=== PATIENT | male | born 1955 | race African-American/Black ===

== ENCOUNTER 2020-12-11 02:53 | Inpatient (IN) | payer MEDICAID ==
[~2020-12-11] VITALS: Ht 172.7 cm; Wt 91.6 kg
[2020-12-11 03:29] LABS: BASOPHILS % 0.6 % (0.0-2.0); EOSINOPHILS % 1.3 % (0.0-5.0); HEMATOCRIT. 44.6 % (42.0-52.0); HEMOGLOBIN. 14.7 g/dL (14.0-18.0); LYMPHOCYTES % 27.1 % (20.0-50.0); MEAN CORPUSCULAR HEMOGLOBIN 28.4 pg (28.0-32.0); MEAN CORPUSCULAR VOLUME 86.3 fL (80.0-94.0); MEAN PLATELET VOLUME 10.4 fl (7.4-10.4); MONOCYTES % 7.5 % (2.0-8.0); NEUTROPHILS % 63.5 % (40.0-76.0); PLATELET 164 x1000/uL (130-400); RED BLOOD CELL COUNT 5.16 mill/uL (4.7-6.1); RED CELL DISTRIBUTION WIDTH 15.5 % (11.6-14.6)
[2020-12-11 03:32] LABS: CHLORIDE 112 mEq/L (98-107)
[2020-12-11 03:42] LABS: BG BASE EXCESS -2.1 mmol/L (-2.0-2.0); BG CARBOXYHEMOGLOBIN 1.4 % (0.5-1.5); BG DEOXYHEMOGLOBIN 4.7 % (0.0-5.0); BG FRACTION INSPIRED OXYGEN 40; BG HCO3 ACT 22.6 mmol/L (22.0-26.0); BG METHEMOGLOBIN 0.1 % (0.0-1.5); BG OXYGEN SATURATION 95.2 % (92.0-98.5); BG OXYHEMOGLOBIN 93.8 % (94.0-97.0); BG PCO2 38.4 mmHg (35.0-45.0); BG PH 7.387 (7.350-7.450); BG SAMPLE SITE RIGHT RADIAL; BG TOTAL HEMOGLOBIN 14.5 g/dL (12.0-18.0); BG VENT MODE MASK - SIMPLE
[2020-12-11] MEDS ORDERED: FUROSEMIDE 40MG/4ML VIAL IVP NR (04:15)
[2020-12-11] MEDS ORDERED: LISINOPRIL 10MG TABLET PO ONE (06:15)
[2020-12-11] MEDS ORDERED: ONDANSETRON HCL 4MG/2ML INJ IV PRN (16:45)
[2020-12-11] MEDS ORDERED: MAGNESIUM/ALUMINUM HYDROXIDE/SIMETHICONE 30ML UDC PO PRN (16:45)
[2020-12-11] MEDS ORDERED: ZOLPIDEM TARTRATE 5MG TABLET PO PRN (16:45)
[2020-12-11] MEDS ORDERED: GUAIFENESIN 200MG/10ML SUGAR FREE UDC PO PRN (16:45)
[2020-12-11] MEDS ORDERED: DIPHENHYDRAMINE 50MG/ML VIAL IV PRN (16:45)
[2020-12-11] MEDS ORDERED: DOCUSATE SODIUM 100MG CAPSULE PO PRN (16:45)
[2020-12-11] MEDS ORDERED: ACETAMINOPHEN 325MG TABLET PO PRN (16:45)
[2020-12-11] MEDS ORDERED: IPRATROPIUM/ALBUTEROL 0.5-3(2.5)MG/3ML NEB HHN PRN (16:45)
[2020-12-11] MEDS: CLONIDINE 0.1MG TABLET PO PRN (18:08)
[2020-12-11] MEDS: ENOXAPARIN 40MG/0.4ML SYR SUBCUT SCH (18:57)
[2020-12-11] MEDS: METHYLPREDNISOLONE SOD SUCC 125 MG/2 ML VIAL IV SCH (20:06)
[2020-12-11] MEDS ORDERED: AMLODIPINE 5MG TABLET PO SCH (21:00)
[2020-12-11] MEDS: SODIUM CHLORIDE 0.9% INJ 3ML FLUSH IVF SCH (21:48)
[2020-12-11] MEDS: LISINOPRIL 10MG TABLET PO SCH (21:48)
[2020-12-11] MEDS: FAMOTIDINE 20MG TABLET PO SCH (21:48)
[2020-12-12] VITALS (8 sets, daily range): BP systolic 136–173; BP diastolic 80–97
[2020-12-12] MEDS: CLONIDINE 0.1MG TABLET PO PRN ×2 (00:50→13:37)
[2020-12-12] MEDS: METHYLPREDNISOLONE SOD SUCC 125 MG/2 ML VIAL IV SCH ×3 (01:23→17:03)
[2020-12-12] MEDS: SODIUM CHLORIDE 0.9% INJ 3ML FLUSH IVF SCH ×3 (05:02→22:22)
[2020-12-12] MEDS: IPRATROPIUM/ALBUTEROL 0.5-3(2.5)MG/3ML NEB HHN SCH ×3 (05:14→15:02)
[2020-12-12] MEDS: LISINOPRIL 10MG TABLET PO SCH (09:18)
[2020-12-12] MEDS: FAMOTIDINE 20MG TABLET PO SCH ×2 (09:18→20:07)
[2020-12-12] MEDS: AMLODIPINE 5MG TABLET PO SCH ×2 (11:57→20:07)
[2020-12-12] MEDS: ACETAMINOPHEN 325MG TABLET PO PRN (17:03)
[2020-12-12] MEDS: ENOXAPARIN 40MG/0.4ML SYR SUBCUT SCH (17:03)
[2020-12-12] MEDS: HYDRALAZINE 20MG/ML VIAL IV PRN (17:03)
[2020-12-12] MEDS ORDERED: HYDRALAZINE 20MG/ML VIAL IV NR (17:45)
[2020-12-12] MEDS ORDERED: NALOXONE HCL 0.4MG/ML VIAL IV PRN (18:15)
[2020-12-12] MEDS: LISINOPRIL 20MG TABLET PO SCH (20:07)
[2020-12-12] MEDS: HYDRALAZINE HCL 50MG TABLET PO SCH (22:22)
[2020-12-13] VITALS: BP 117/69
[2020-12-13] MEDS: IPRATROPIUM/ALBUTEROL 0.5-3(2.5)MG/3ML NEB HHN SCH ×3 (00:24→20:57)
[2020-12-13] MEDS: METHYLPREDNISOLONE SOD SUCC 125 MG/2 ML VIAL IV SCH ×3 (02:13→17:14)
[2020-12-13 04:00] VITALS: BP 159/85
[2020-12-13] MEDS: SODIUM CHLORIDE 0.9% INJ 3ML FLUSH IVF SCH ×3 (05:36→21:34)
[2020-12-13] MEDS: HYDRALAZINE HCL 50MG TABLET PO SCH ×3 (05:37→22:48)
[2020-12-13] MEDS: AMLODIPINE 5MG TABLET PO SCH (09:00)
[2020-12-13] MEDS: FAMOTIDINE 20MG TABLET PO SCH ×2 (09:01→21:34)
[2020-12-13] MEDS: LISINOPRIL 20MG TABLET PO SCH ×2 (09:01→21:34)
[2020-12-13] MEDS: ACETAMINOPHEN 325MG TABLET PO PRN (09:01)
[2020-12-13] MEDS ORDERED: IOHEXOL-350 100 ML BOTTLE ONE (09:49)
[2020-12-13] MEDS: MORPHINE SULFATE 4 MG/ML CPJ (NOT FOR IM USE) IV PRN ×2 (09:51→15:12)
[2020-12-13] MEDS: HYDRALAZINE 20MG/ML VIAL IV PRN ×2 (09:54→15:11)
[2020-12-13] MEDS: CLONIDINE 0.1MG TABLET PO PRN (10:12)
[2020-12-13] MEDS ORDERED: LABETALOL 5MG/ML SYR 20 MG/4 ML SYRINGE IV NR (10:30)
[2020-12-13 12:00] VITALS: BP 121/65
[2020-12-13 16:30] VITALS: BP 144/63
[2020-12-13] MEDS: ENOXAPARIN 40MG/0.4ML SYR SUBCUT SCH (17:14)
[2020-12-13 18:14] LABS: *AMPHETAMINES SCREEN URINE NEGATIVE (NEGATIVE); *BARBITURATES SCREEN URINE NEGATIVE (NEGATIVE); *BENZODIAZEPINES SCREEN URINE NEGATIVE (NEGATIVE); *COCAINE SCREEN URINE NEGATIVE (NEGATIVE)
[2020-12-13 18:15] LABS: CANNABINOID URINE SCREEN NEGATIVE (NEGATIVE); METHADONE URINE SCREEN NEGATIVE (NEGATIVE); OPIATES URINE SCREEN PRESUMTIVE POSITIVE (NEGATIVE); PHENCYCLIDINE URINE SCREEN NEGATIVE (NEGATIVE)
[2020-12-13] MEDS: ISOSORBIDE MONONITRATE 30MG TABLET SR 24HR PO SCH (18:43)
[2020-12-13 19:14] VITALS: BP 151/76
[2020-12-13 20:00] VITALS: BP 131/65
[2020-12-13] MEDS: AMLODIPINE 10MG TABLET PO SCH (21:34)
[2020-12-14] VITALS (9 sets, daily range): BP systolic 107–141; BP diastolic 53–76
[2020-12-14] MEDS: METHYLPREDNISOLONE SOD SUCC 125 MG/2 ML VIAL IV SCH ×3 (01:16→18:38)
[2020-12-14] MEDS: IPRATROPIUM/ALBUTEROL 0.5-3(2.5)MG/3ML NEB HHN SCH ×4 (01:22→20:58)
[2020-12-14] MEDS: SODIUM CHLORIDE 0.9% INJ 3ML FLUSH IVF SCH ×2 (05:34→21:25)
[2020-12-14] MEDS: HYDRALAZINE HCL 50MG TABLET PO SCH (05:34)
[2020-12-14] MEDS ORDERED: HEPARIN SODIUM 1,000 UNIT/1ML VIAL IV ONE (07:54)
[2020-12-14] MEDS: ISOSORBIDE MONONITRATE 30MG TABLET SR 24HR PO SCH (09:28)
[2020-12-14] MEDS: AMLODIPINE 10MG TABLET PO SCH ×2 (09:29→21:24)
[2020-12-14] MEDS: FAMOTIDINE 20MG TABLET PO SCH ×2 (09:29→21:23)
[2020-12-14] MEDS: LISINOPRIL 20MG TABLET PO SCH ×2 (09:30→21:23)
[2020-12-14] MEDS ORDERED: VERAPAMIL HCL 2.5 MG/1 ML 2ML VIAL IV ONE (12:31)
[2020-12-14] MEDS ORDERED: LIDOCAINE HCL 1% 20ML VIAL (Pyxis) INJ ONE (12:31)
[2020-12-14] MEDS ORDERED: IODIXANOL 320MG/ML 200ML BOTTLE ONE (12:33)
[2020-12-14] MEDS ORDERED: FENTANYL CITRATE/PF 50MCG/ML 2ML VIAL ONE ×2 (12:41→13:55)
[2020-12-14] MEDS ORDERED: MIDAZOLAM HCL 2 MG/2 ML VIAL ONE (12:42)
[2020-12-14] MEDS ORDERED: MIDAZOLAM HCL 5 MG/5 ML VIAL ONE (13:55)
[2020-12-14] MEDS ORDERED: ATROPINE SULFATE 1MG/10ML SYR IV PRN (14:45)
[2020-12-14] MEDS: ENOXAPARIN 40MG/0.4ML SYR SUBCUT SCH (18:00)
[2020-12-15] VITALS (7 sets, daily range): BP systolic 134–167; BP diastolic 61–97
[2020-12-15] MEDS: METHYLPREDNISOLONE SOD SUCC 125 MG/2 ML VIAL IV SCH ×2 (01:33→09:38)
[2020-12-15] MEDS: SODIUM CHLORIDE 0.9% INJ 3ML FLUSH IVF SCH (05:00)
[2020-12-15 06:53] LABS: HEMATOCRIT. 42.9 % (42.0-52.0); HEMOGLOBIN. 14.1 g/dL (14.0-18.0); MEAN CORPUSCULAR VOLUME 84.9 fL (80.0-94.0); MEAN PLATELET VOLUME 10.5 fl (7.4-10.4); PLATELET 187 x1000/uL (130-400); RED BLOOD CELL COUNT 5.05 mill/uL (4.7-6.1)
[2020-12-15 06:59] LABS: CHLORIDE 107 mEq/L (98-107)
[2020-12-15] MEDS ORDERED: FUROSEMIDE 20MG TABLET PO SCH (09:00)
[2020-12-15] MEDS ORDERED: SPIRONOLACTONE 25MG TABLET PO SCH (09:00)
[2020-12-15] MEDS: AMLODIPINE 10MG TABLET PO SCH (09:30)
[2020-12-15] MEDS: ISOSORBIDE MONONITRATE 30MG TABLET SR 24HR PO SCH (09:31)
[2020-12-15] MEDS: LISINOPRIL 20MG TABLET PO SCH (09:31)
[2020-12-15] MEDS: FAMOTIDINE 20MG TABLET PO SCH (09:38)
[2020-12-15] MEDS: IPRATROPIUM/ALBUTEROL 0.5-3(2.5)MG/3ML NEB HHN SCH ×2 (10:20→15:13)
[2020-12-15 16:32] LABS: PLATELET ESTIMATE NORMAL
[2020-12-15] MEDS ORDERED: ENOXAPARIN 30MG/0.3ML SYR SUBCUT SCH (21:00)
== END 2020-12-15 16:42 | disposition home or self-care (01) | DRG 191 ==
LOC: EDBD 03:48 → ER 03:48 → MICUSO 06:47 → 7EST 20:23 → 3WST 12-14 16:44
PROVIDERS: ADMIT Internal Medicine; ATTEND Internal Medicine
PROC: 4A023N7 Measurement of Cardiac Sampling and Pressure, Left Heart, Percutaneous Approach (ICD-10-PCS; principal; 2020-12-14)
PROC: B211YZZ Fluoroscopy of Multiple Coronary Arteries using Other Contrast (ICD-10-PCS; 2020-12-14)
DX: I25.110 Atherosclerotic heart disease of native coronary artery with unstable angina pectoris (principal); J96.01 Acute respiratory failure with hypoxia; R65.11 Systemic inflammatory response syndrome (SIRS) of non-infectious origin with acute organ dysfunction; I50.33 Acute on chronic diastolic (congestive) heart failure; J44.1 Chronic obstructive pulmonary disease with (acute) exacerbation; I11.0 Hypertensive heart disease with heart failure; Z96.651 Presence of right artificial knee joint; R74.01 Elevation of levels of liver transaminase levels; F17.210 Nicotine dependence, cigarettes, uncomplicated; Z20.822 Contact with and (suspected) exposure to COVID-19; I16.1 Hypertensive emergency; I35.0 Nonrheumatic aortic (valve) stenosis; Z86.73 Personal history of transient ischemic attack (TIA), and cerebral infarction without residual deficits; Z71.6 Tobacco abuse counseling
CPT/HCPCS: 36415; 36600; 71045; 71275; 80048; 80053; 80305; 82375; 82805; 82962; 83880; 84484; 85025; 87426; 93005; 93306; 93458; 99285; C1769; C1887; C1893; J0360; J1644; J1650; J1940; J2250; J2270; J2930; J3010; J3490; Q9967

== ENCOUNTER → 2021-01-06 | Outpatient (CLI) | payer MEDICAID ==
[~2021-01-06] MED LIST: ACETAMINOPHEN 500MG TABLET ONE; ASPI-1497 MT; ATOR40TA70 MT; BACITRACIN 15GM TUBE TOP ONE; DOPAMINE 400MG/250ML PREMIX 250 ML IV ONE; FURO20TA4 MT; ISOS30TA91 MT; LISI20TA31 MT; POLYMYXIN B SULFATE 500000 UNITS/VIAL ONE; SKIN ADHESIVE 0.7 GM EA TOP ONE; SPIR25TA6 PO; THROMBIN (BOVINE) 5000 UNITS/VIAL TOP ONE
== END | disposition home or self-care (01) ==
LOC: LAB 10:30
PROVIDERS: ATTEND Thoracic Surgery (Cardiothoracic Vascular Surgery)
DX: Z01.812 Encounter for preprocedural laboratory examination (principal); Z20.822 Contact with and (suspected) exposure to COVID-19
CPT/HCPCS: 87426

== ENCOUNTER 2021-01-10 05:26 | Inpatient (IN) | payer MEDICAID ==
[~2021-01-10] VITALS: Ht 182.9 cm; Wt 94.0 kg
[2021-01-10] VITALS (56 sets, daily range): BP systolic 109–241; BP diastolic 51–95
[2021-01-10 05:54] LABS: CHLORIDE 110 mEq/L (98-107)
[2021-01-10] MEDS ORDERED: DOPAMINE 400 MG PREMIX 250 ML IV PRN (06:00)
[2021-01-10] MEDS ORDERED: PAPAVERINE HCL 180MG in SODIUM CHLORIDE 0.9% 24ML IV PRN (06:00)
[2021-01-10] MEDS ORDERED: NOREPINEPHRINE 8 MG in DEXT 5% WATER 242 ML IV PRN (06:00)
[2021-01-10] MEDS ORDERED: NICARDIPINE 40MG/200ML PREMIX 200 ML IV PRN (06:00)
[2021-01-10] MEDS ORDERED: INSULIN REGULAR (DRIP) 100 UNITS in SODIUM CHLORIDE 0.9% 99 ML IV PRN (06:00)
[2021-01-10] MEDS ORDERED: DEL NIDO ELECTROLYTE-S(PH 7.4) 1,000 ML IV PRN ×2 (06:00)
[2021-01-10] MEDS ORDERED: CEFAZOLIN 2,000 MG in DEXT 5% WATER 100 ML IV PRN (06:00)
[2021-01-10] MEDS ORDERED: EPINEPHRINE 5 MG in DEXT 5% WATER 245 ML IV PRN (06:00)
[2021-01-10] MEDS ORDERED: DOBUTAMINE 250MG PREMIX 250 ML IV PRN (06:00)
[2021-01-10] MEDS ORDERED: LACTATED RINGERS 1,000 ML IV SCH (06:15)
[2021-01-10] MEDS ORDERED: HEPARIN 1000 UNITS/ML 10ML ONE ×2 (06:42→08:27)
[2021-01-10] MEDS ORDERED: AMINOCAPROIC ACID 5,000 MG in SODIUM CHLORIDE 0.9% 230 ML IV ONE (06:45)
[2021-01-10] MEDS ORDERED: FENTANYL CITRATE/PF 50MCG/ML 5ML VIAL ONE (07:10)
[2021-01-10] MEDS ORDERED: ROCURONIUM BROMIDE 10MG/ML VIAL 5ML IV ONE (07:12)
[2021-01-10] MEDS ORDERED: PROPOFOL 200MG/20ML VIAL IV ONE ×2 (07:13→08:07)
[2021-01-10] MEDS ORDERED: PHENYLEPHRINE HCL 10 MG/ML 1ML (IV VIAL) IV ONE ×2 (07:16→12:58)
[2021-01-10] MEDS ORDERED: LIDOCAINE HCL/PF 1% 10 MG/ML 5ML VIAL ONE (07:18)
[2021-01-10] MEDS ORDERED: ESMOLOL HCL 10MG/ML 10ML VIAL IV ONE (07:36)
[2021-01-10] MEDS ORDERED: LABETALOL HCL 5MG/ML VIAL 20ML IV ONE (07:39)
[2021-01-10 08:28] LABS: CLARITY URINE CLEAR (CLEAR); COLOR URINE YELLOW (YELLOW); KETONES URINE NEGATIVE (NEGATIVE); LEUKOCYTE ESTERASE URINE TRACE (NEGATIVE); NITRITE URINE NEGATIVE (NEGATIVE); OCCULT BLOOD URINE NEGATIVE (NEGATIVE); PROTEIN URINE TRACE (NEGATIVE); SPECIFIC GRAVITY URINE 1.023 (1.005-1.030)
[2021-01-10] MEDS ORDERED: AMINOCAPROIC ACID 250 MG/ML 20ML VIAL ONE ×3 (08:30→12:58)
[2021-01-10] MEDS ORDERED: FUROSEMIDE 100MG/10ML VIAL ONE (08:34)
[2021-01-10] MEDS ORDERED: VECURONIUM BROMIDE 10 MG/VIAL IV ONE (08:48)
[2021-01-10] MEDS ORDERED: INSULIN REGULAR (DRIP) 100 UNITS in SODIUM CHLORIDE 0.9% 100 ML IV SCH (09:00)
[2021-01-10] MEDS ORDERED: SPIR25TA6 PO (09:00)
[2021-01-10] MEDS ORDERED: FURO20TA4 MT (09:00)
[2021-01-10] MEDS ORDERED: ISOS30TA91 MT (09:00)
[2021-01-10] MEDS ORDERED: LISI20TA31 MT (09:00)
[2021-01-10] MEDS ORDERED: KCL 10MEQ/50ML PREMIX 200 ML IV PRN (09:00)
[2021-01-10] MEDS ORDERED: DEXTROSE 50% WATER 50ML SYRINGE IV PRN ×2 (09:00)
[2021-01-10] MEDS ORDERED: ASPI-1497 MT (09:00)
[2021-01-10] MEDS: BLOOD SUGAR DIAGNOSTIC STRIP TEST SCH ×13 (09:00→23:00)
[2021-01-10] MEDS ORDERED: KCL 10MEQ/50ML PREMIX 150 ML IV PRN (09:00)
[2021-01-10] MEDS ORDERED: ATOR40TA70 MT (09:00)
[2021-01-10] MEDS ORDERED: MIDAZOLAM HCL 2 MG/2 ML VIAL ONE (09:24)
[2021-01-10] MEDS ORDERED: ONDANSETRON HCL 4MG/2ML INJ ONE (09:50)
[2021-01-10] MEDS ORDERED: KETOROLAC 30MG/ML VIAL ONE (09:50)
[2021-01-10] MEDS ORDERED: METOCLOPRAMIDE HCL 10MG/2ML VIAL ONE (09:50)
[2021-01-10] MEDS ORDERED: HYDRALAZINE 20MG/ML VIAL ONE (09:56)
[2021-01-10] MEDS ORDERED: DEXMEDETOMIDINE 400 MCG/100 ML 100 ML IV ONE (09:59)
[2021-01-10] MEDS ORDERED: CEFAZOLIN SODIUM 1000MG/VIAL ONE (10:08)
[2021-01-10] MEDS ORDERED: ETOMIDATE 2MG/ML 10ML VIAL IV ONE (10:08)
[2021-01-10] MEDS ORDERED: PROTAMINE SULFATE 10MG/ML VIAL 25ML IV ONE (11:16)
[2021-01-10] MEDS ORDERED: GLYCOPYRROLATE 0.2 MG/ML 2ML VIAL ONE (11:37)
[2021-01-10] MEDS ORDERED: NEOSTIGMINE METHYLSULFATE 1MG/ML 10 ML VIAL ONE (11:37)
[2021-01-10] MEDS ORDERED: CALCIUM CHLORIDE 3,000 MG in DEXT 5% WATER 250 ML IV PRN (12:15)
[2021-01-10] MEDS ORDERED: ALBUMIN HUMAN 12.5G/250ML (5%) IV PRN (12:15)
[2021-01-10] MEDS ORDERED: DOPAMINE 400MG/250ML PREMIX 250 ML IV SCH (12:15)
[2021-01-10] MEDS ORDERED: ONDANSETRON HCL 4MG/2ML INJ IV PRN (12:15)
[2021-01-10] MEDS ORDERED: EPINEPHRINE 5 MG in DEXT 5% WATER 245 ML IV SCH (12:15)
[2021-01-10] MEDS ORDERED: MAGNESIUM 1 G PREMIX 100 ML IV PRN (12:15)
[2021-01-10] MEDS ORDERED: MAGNESIUM 2 G PREMIX 50 ML IV PRN (12:15)
[2021-01-10] MEDS ORDERED: ALBUMIN HUMAN 25GM/100ML (25%) IV PRN (12:15)
[2021-01-10] MEDS ORDERED: ACETAMINOPHEN 325MG TABLET PO PRN (12:15)
[2021-01-10] MEDS ORDERED: MORPHINE SULFATE 2 MG/ML CPJ (NOT FOR IM USE) IV PRN (12:15)
[2021-01-10] MEDS ORDERED: MAGNESIUM SULFATE 3 GM in DEXT 5% WATER 100 ML IV PRN (12:15)
[2021-01-10 12:53] LABS: BG BASE EXCESS -3.5 mmol/L (-2.0-2.0); BG CARBOXYHEMOGLOBIN 0.8 % (0.5-1.5); BG DEOXYHEMOGLOBIN 10.1 % (0.0-5.0); BG HCO3 ACT 22.7 mmol/L (22.0-26.0); BG METHEMOGLOBIN 0.1 % (0.0-1.5); BG OXYGEN SATURATION 89.8 % (92.0-98.5); BG PCO2 45.3 mmHg (35.0-45.0); BG PH 7.317 (7.350-7.450); BG PO2 65.1 mmHg (75.0-100.0); BG SAMPLE SITE ALINE; BG TOTAL HEMOGLOBIN 12.8 g/dL (12.0-18.0); BG VENT MODE MASK - VENTI
[2021-01-10] MEDS ORDERED: MAGNESIUM SULFATE 5GM/10ML VIAL IV ONE (12:58)
[2021-01-10] MEDS ORDERED: MANNITOL 20% (20GM/100ML) BAG 500ML PREMIX IV ONE (12:58)
[2021-01-10] MEDS ORDERED: CALCIUM CHLORIDE 1GM/10ML SYR IV ONE (12:58)
[2021-01-10] MEDS ORDERED: LIDOCAINE HCL 2% 5ML SYRINGE IV ONE (12:58)
[2021-01-10] MEDS ORDERED: HEPARIN 10,000 UNITS/ML VIAL ONE (12:58)
[2021-01-10] MEDS ORDERED: SODIUM BICARBONATE 8.4% 1 MEQ/ML 50ML SYR IV ONE (12:58)
[2021-01-10] MEDS ORDERED: ALBUMIN HUMAN 25GM/100ML (25%) IV ONE (12:58)
[2021-01-10] MEDS: MAGNESIUM HYDROXIDE 400MG/5ML 30ML UDC PO SCH ×3 (13:00→20:40)
[2021-01-10 13:03] LABS: HEMATOCRIT. 36.4 % (42.0-52.0); HEMOGLOBIN. 11.8 g/dL (14.0-18.0); MEAN CORPUSCULAR HEMOGLOBIN 27.6 pg (28.0-32.0); MEAN CORPUSCULAR VOLUME 85.1 fL (80.0-94.0); MEAN PLATELET VOLUME 9.9 fl (7.4-10.4); PLATELET 139 x1000/uL (130-400); RED BLOOD CELL COUNT 4.28 mill/uL (4.7-6.1); RED CELL DISTRIBUTION WIDTH 15.9 % (11.6-14.6)
[2021-01-10 13:14] LABS: INR 1.1; PROTHROMBIN TIME 11.8 sec (9.6-11.0)
[2021-01-10] MEDS ORDERED: NALOXONE HCL 0.4MG/ML VIAL IV PRN (13:15)
[2021-01-10 13:23] LABS: CHLORIDE 106 mEq/L (98-107)
[2021-01-10 13:30] LABS: PHOSPHORUS 3.5 mg/dL (2.5-4.9)
[2021-01-10] MEDS: KCL 10MEQ/50ML PREMIX 100 ML IV PRN (13:33)
[2021-01-10] MEDS ORDERED: POTASSIUM CHLORIDE 10MEQ IN WATER 50ML PREMIX IV ONE (13:37)
[2021-01-10] MEDS ORDERED: MAGNESIUM SULFATE 1G IN DEXT 5% 100ML PREMIX IV ONE (13:37)
[2021-01-10] MEDS: CEFAZOLIN 1000MG PREMIX 50 ML IV SCH ×2 (14:55→21:58)
[2021-01-10] MEDS: DEXT 5%/0.45% NACL 1000ML 1,000 ML IV SCH (15:15)
[2021-01-10] MEDS: KETOROLAC 15MG/ML VIAL IV PRN (16:57)
[2021-01-10] MEDS: BACITRACIN 15GM TUBE TOP SCH (17:00)
[2021-01-10] MEDS: DOCUSATE SODIUM 100MG CAPSULE PO SCH (17:44)
[2021-01-10 18:23] LABS: HEMATOCRIT. 37.3 % (42.0-52.0); HEMOGLOBIN. 12.2 g/dL (14.0-18.0); MEAN CORPUSCULAR HEMOGLOBIN 27.8 pg (28.0-32.0); MEAN CORPUSCULAR VOLUME 85.1 fL (80.0-94.0); MEAN PLATELET VOLUME 9.7 fl (7.4-10.4); PLATELET 140 x1000/uL (130-400); RED BLOOD CELL COUNT 4.38 mill/uL (4.7-6.1); RED CELL DISTRIBUTION WIDTH 16.2 % (11.6-14.6)
[2021-01-10 18:30] LABS: CHLORIDE 112 mEq/L (98-107)
[2021-01-10 18:35] LABS: PHOSPHORUS 1.9 mg/dL (2.5-4.9)
[2021-01-10 18:36] LABS: PROTHROMBIN TIME 11.1 sec (9.6-11.0)
[2021-01-10 18:38] LABS: BG BASE EXCESS -1.1 mmol/L (-2.0-2.0); BG CARBOXYHEMOGLOBIN 1.1 % (0.5-1.5); BG FRACTION INSPIRED OXYGEN 36; BG HCO3 ACT 24.3 mmol/L (22.0-26.0); BG METHEMOGLOBIN 0.2 % (0.0-1.5); BG OXYGEN SATURATION 94.9 % (92.0-98.5); BG OXYHEMOGLOBIN 93.7 % (94.0-97.0); BG PCO2 43.1 mmHg (35.0-45.0); BG PH 7.369 (7.350-7.450); BG PO2 79.9 mmHg (75.0-100.0); BG SAMPLE SITE ALINE; BG VENT MODE NASAL CANNULA
[2021-01-10] MEDS: OXYCODONE HCL/ACETAMINOPHEN 5/325MG TABLET PO PRN (20:42)
[2021-01-10] MEDS: IPRATROPIUM/ALBUTEROL 0.5-3(2.5)MG/3ML NEB HHN SCH ×2 (21:00→21:58)
[2021-01-10 21:05] LABS: PLATELET ESTIMATE NORMAL
[2021-01-10 21:59] LABS: PLATELET ESTIMATE NORMAL
[2021-01-11] VITALS (95 sets, daily range): BP systolic 84–187; BP diastolic 36–97
[2021-01-11] MEDS: IPRATROPIUM/ALBUTEROL 0.5-3(2.5)MG/3ML NEB HHN SCH ×6 (00:26→21:32)
[2021-01-11] MEDS: MAGNESIUM HYDROXIDE 400MG/5ML 30ML UDC PO SCH ×4 (00:54→12:42)
[2021-01-11] MEDS: BLOOD SUGAR DIAGNOSTIC STRIP TEST SCH ×20 (01:00→21:04)
[2021-01-11 01:02] LABS: BG CARBOXYHEMOGLOBIN 0.5 % (0.5-1.5); BG DEOXYHEMOGLOBIN 3.5 % (0.0-5.0); BG FRACTION INSPIRED OXYGEN 100; BG HCO3 ACT 23.6 mmol/L (22.0-26.0); BG OXYGEN SATURATION 96.5 % (92.0-98.5); BG PCO2 39.3 mmHg (35.0-45.0); BG PH 7.397 (7.350-7.450); BG PO2 89.5 mmHg (75.0-100.0); BG SAMPLE SITE ALINE; BG TOTAL HEMOGLOBIN 12.9 g/dL (12.0-18.0); BG VENT MODE MASK - NRB
[2021-01-11] MEDS: OXYCODONE HCL/ACETAMINOPHEN 5/325MG TABLET PO PRN ×5 (02:14→21:58)
[2021-01-11] MEDS: KETOROLAC 15MG/ML VIAL IV PRN ×2 (03:56→08:05)
[2021-01-11 04:55] LABS: BASOPHILS % 0.1 % (0.0-2.0); HEMATOCRIT. 36.4 % (42.0-52.0); LYMPHOCYTES % 7.1 % (20.0-50.0); MEAN CORPUSCULAR VOLUME 84.6 fL (80.0-94.0); MEAN PLATELET VOLUME 10.3 fl (7.4-10.4); MONOCYTES % 13.7 % (2.0-8.0); NEUTROPHILS % 79.1 % (40.0-76.0); PLATELET 149 x1000/uL (130-400); RED CELL DISTRIBUTION WIDTH 16.2 % (11.6-14.6)
[2021-01-11 05:04] LABS: CHLORIDE 109 mEq/L (98-107)
[2021-01-11] MEDS: KCL 10MEQ/50ML PREMIX 100 ML IV PRN (05:52)
[2021-01-11] MEDS: CEFAZOLIN 1000MG PREMIX 50 ML IV SCH ×2 (06:39→13:07)
[2021-01-11] MEDS ORDERED: NICARDIPINE 100 MG in SODIUM CHLORIDE 0.9% 60 ML IV PRN (07:30)
[2021-01-11] MEDS: DOCUSATE SODIUM 100MG CAPSULE PO SCH ×2 (08:53→17:27)
[2021-01-11] MEDS: BACITRACIN 15GM TUBE TOP SCH ×2 (08:53→17:27)
[2021-01-11] MEDS ORDERED: METOPROLOL TARTRATE 25MG TABLET PO SCH (10:30)
[2021-01-11] MEDS ORDERED: LISINOPRIL 20MG TABLET PO SCH (10:30)
[2021-01-11] MEDS ORDERED: AMLODIPINE 5MG TABLET PO SCH (10:30)
[2021-01-11] MEDS: GUAIFENESIN 200MG/10ML SUGAR FREE UDC PO PRN (10:55)
[2021-01-11] MEDS: HYDRALAZINE 20MG/ML VIAL IV PRN ×2 (15:18→15:22)
[2021-01-11] MEDS: DEXT 5%/0.45% NACL 1000ML 1,000 ML IV SCH (16:38)
[2021-01-11] MEDS ORDERED: DEXTROSE 50% WATER 50ML SYRINGE IV PRN (17:00)
[2021-01-11] MEDS ORDERED: IBUPROFEN 600MG TABLET PO PRN (17:00)
[2021-01-11] MEDS ORDERED: MORPHINE SULFATE 2 MG/ML CPJ (NOT FOR IM USE) IV PRN (17:00)
[2021-01-11] MEDS ORDERED: METOPROLOL TARTRATE 50MG TABLET PO NR (17:15)
[2021-01-11] MEDS ORDERED: FUROSEMIDE 40MG/4ML VIAL IVP NR (17:15)
[2021-01-11] MEDS: MORPHINE SULFATE 4 MG/ML CPJ (NOT FOR IM USE) IV PRN (18:42)
[2021-01-11] MEDS: ATORVASTATIN CALCIUM 40MG TABLET PO SCH (20:43)
[2021-01-11] MEDS: METOPROLOL TARTRATE 50MG TABLET PO SCH (21:00)
[2021-01-11] MEDS: INSULIN LISPRO 100 UNITS/ML SUBCUT SCH (21:00)
[2021-01-11] MEDS ORDERED: AMIODARONE HCL 50MG/ML 9ML VIAL IV ONE (23:00)
[2021-01-11] MEDS ORDERED: AMIODARONE HCL 50MG/ML 3ML VIAL IV ONE (23:00)
[2021-01-11] MEDS ORDERED: ALBUMIN HUMAN 25GM/100ML (25%) IV SCH (23:00)
[2021-01-11] MEDS ORDERED: AMIODARONE HCL 150 MG in DEXT 5% WATER 100 ML IV SCH (23:15)
[2021-01-11] MEDS ORDERED: AMIODARONE HCL 900 MG in DEXT 5% WATER 500 ML IV SCH (23:30)
[2021-01-12] VITALS (48 sets, daily range): BP systolic 82–156; BP diastolic 61–111
[2021-01-12] MEDS: IPRATROPIUM/ALBUTEROL 0.5-3(2.5)MG/3ML NEB HHN SCH ×6 (01:00→20:11)
[2021-01-12 07:06] LABS: CHLORIDE 104 mEq/L (98-107)
[2021-01-12 07:14] LABS: BASOPHILS % 0.1 % (0.0-2.0); EOSINOPHILS % 0.1 % (0.0-5.0); HEMATOCRIT. 32.7 % (42.0-52.0); HEMOGLOBIN. 10.7 g/dL (14.0-18.0); LYMPHOCYTES % 13.2 % (20.0-50.0); MEAN CORPUSCULAR HEMOGLOBIN 27.8 pg (28.0-32.0); MEAN CORPUSCULAR VOLUME 84.5 fL (80.0-94.0); MEAN PLATELET VOLUME 10.4 fl (7.4-10.4); MONOCYTES % 13.8 % (2.0-8.0); NEUTROPHILS % 72.8 % (40.0-76.0); PLATELET 126 x1000/uL (130-400); RED BLOOD CELL COUNT 3.87 mill/uL (4.7-6.1); RED CELL DISTRIBUTION WIDTH 16.3 % (11.6-14.6)
[2021-01-12] MEDS: BLOOD SUGAR DIAGNOSTIC STRIP TEST SCH ×4 (07:44→20:38)
[2021-01-12] MEDS: INSULIN LISPRO 100 UNITS/ML SUBCUT SCH ×4 (07:44→20:39)
[2021-01-12] MEDS: AMIODARONE HCL 200 MG TABLET PO SCH ×2 (08:27→20:38)
[2021-01-12] MEDS: BACITRACIN 15GM TUBE TOP SCH ×2 (08:27→16:24)
[2021-01-12] MEDS: DOCUSATE SODIUM 100MG CAPSULE PO SCH ×2 (08:27→16:24)
[2021-01-12] MEDS: ASPIRIN 81MG TABLET PO SCH (08:27)
[2021-01-12] MEDS: METOPROLOL TARTRATE 50MG TABLET PO SCH ×2 (08:31→20:37)
[2021-01-12] MEDS: OXYCODONE HCL/ACETAMINOPHEN 5/325MG TABLET PO PRN ×2 (16:24→20:38)
[2021-01-12] MEDS: ATORVASTATIN CALCIUM 40MG TABLET PO SCH (20:37)
[2021-01-12] MEDS ORDERED: FUROSEMIDE 40MG/4ML VIAL IVP NR (23:45)
[2021-01-13] VITALS (11 sets, daily range): BP systolic 130–189; BP diastolic 78–118
[2021-01-13] MEDS: IPRATROPIUM/ALBUTEROL 0.5-3(2.5)MG/3ML NEB HHN SCH ×5 (00:47→20:41)
[2021-01-13] MEDS: OXYCODONE HCL/ACETAMINOPHEN 5/325MG TABLET PO PRN (02:47)
[2021-01-13] MEDS: BLOOD SUGAR DIAGNOSTIC STRIP TEST SCH ×4 (06:36→21:28)
[2021-01-13] MEDS: INSULIN LISPRO 100 UNITS/ML SUBCUT SCH ×4 (07:20→21:00)
[2021-01-13] MEDS ORDERED: FUROSEMIDE 40MG/4ML VIAL IVP NR (07:45)
[2021-01-13] MEDS: DOCUSATE SODIUM 100MG CAPSULE PO SCH ×2 (09:00→17:00)
[2021-01-13 09:04] LABS: BASOPHILS % 0.2 % (0.0-2.0); EOSINOPHILS % 0.5 % (0.0-5.0); HEMATOCRIT. 34.5 % (42.0-52.0); HEMOGLOBIN. 11.3 g/dL (14.0-18.0); LYMPHOCYTES % 12.8 % (20.0-50.0); MEAN CORPUSCULAR HEMOGLOBIN 27.8 pg (28.0-32.0); MEAN CORPUSCULAR VOLUME 84.9 fL (80.0-94.0); MEAN PLATELET VOLUME 9.9 fl (7.4-10.4); MONOCYTES % 14.1 % (2.0-8.0); NEUTROPHILS % 72.4 % (40.0-76.0); PLATELET 121 x1000/uL (130-400); RED BLOOD CELL COUNT 4.07 mill/uL (4.7-6.1); RED CELL DISTRIBUTION WIDTH 15.9 % (11.6-14.6)
[2021-01-13 09:10] LABS: CHLORIDE 107 mEq/L (98-107)
[2021-01-13] MEDS: AMIODARONE HCL 200 MG TABLET PO SCH ×2 (10:06→21:27)
[2021-01-13] MEDS: ASPIRIN 81MG TABLET PO SCH (10:06)
[2021-01-13] MEDS: METOPROLOL TARTRATE 50MG TABLET PO SCH ×2 (10:07→21:27)
[2021-01-13] MEDS: BACITRACIN 15GM TUBE TOP SCH ×2 (16:09→17:00)
[2021-01-13] MEDS: MORPHINE SULFATE 4 MG/ML CPJ (NOT FOR IM USE) IV PRN ×2 (16:10→21:29)
[2021-01-13] MEDS: GUAIFENESIN 200MG/10ML SUGAR FREE UDC PO PRN (18:52)
[2021-01-13] MEDS: ATORVASTATIN CALCIUM 40MG TABLET PO SCH (21:26)
[2021-01-13] MEDS: GUAIFENESIN 600MG ER TABLET PO SCH (21:28)
[2021-01-14] VITALS (11 sets, daily range): BP systolic 120–160; BP diastolic 74–91
[2021-01-14] MEDS: OXYCODONE HCL/ACETAMINOPHEN 5/325MG TABLET PO PRN ×2 (00:22→08:41)
[2021-01-14] MEDS: IPRATROPIUM/ALBUTEROL 0.5-3(2.5)MG/3ML NEB HHN SCH ×4 (01:00→17:47)
[2021-01-14] MEDS: BLOOD SUGAR DIAGNOSTIC STRIP TEST SCH ×2 (07:00→11:50)
[2021-01-14] MEDS: INSULIN LISPRO 100 UNITS/ML SUBCUT SCH ×2 (08:18→12:33)
[2021-01-14] MEDS: DOCUSATE SODIUM 100MG CAPSULE PO SCH (08:40)
[2021-01-14] MEDS: AMIODARONE HCL 200 MG TABLET PO SCH (08:40)
[2021-01-14] MEDS: ASPIRIN 81MG TABLET PO SCH (08:40)
[2021-01-14] MEDS: METOPROLOL TARTRATE 50MG TABLET PO SCH (08:40)
[2021-01-14] MEDS: GUAIFENESIN 600MG ER TABLET PO SCH (08:40)
[2021-01-14] MEDS: BACITRACIN 15GM TUBE TOP SCH ×2 (08:40→17:09)
[2021-01-14] MEDS ORDERED: MAGNESIUM 2 G PREMIX 50 ML IV NR (10:00)
[2021-01-14] MEDS ORDERED: POLYETHYLENE GLYCOL 3350 (17GM) 1 DOSE PACK PO SCH (11:30)
[2021-01-14] MEDS ORDERED: DOCUSATE SODIUM 100MG CAPSULE PO SCH (17:00)
== END 2021-01-14 17:59 | DRG 163 ==
LOC: OR 05:26 → CVICU 05:28 → 3WST 01-12 23:35
PROVIDERS: ADMIT Internal Medicine; ATTEND Internal Medicine
PROC: 02100Z9 Bypass Coronary Artery, One Artery from Left Internal Mammary, Open Approach (ICD-10-PCS; principal; 2021-01-10)
PROC: 02RF08Z Replacement of Aortic Valve with Zooplastic Tissue, Open Approach (ICD-10-PCS; 2021-01-10)
PROC: 5A1221Z Performance of Cardiac Output, Continuous (ICD-10-PCS; 2021-01-10)
PROC: 06BQ4ZZ Excision of Left Saphenous Vein, Percutaneous Endoscopic Approach (ICD-10-PCS; 2021-01-10)
PROC: 0W9B30Z Drainage of Left Pleural Cavity with Drainage Device, Percutaneous Approach (ICD-10-PCS; 2021-01-10)
PROC: 0W9930Z Drainage of Right Pleural Cavity with Drainage Device, Percutaneous Approach (ICD-10-PCS; 2021-01-10)
PROC: B24BZZ4 Ultrasonography of Heart with Aorta, Transesophageal (ICD-10-PCS; 2021-01-10)
PROC: 021309W Bypass Coronary Artery, Four or More Arteries from Aorta with Autologous Venous Tissue, Open Approach (ICD-10-PCS; 2021-01-10)
PROC: 02L70ZK Occlusion of Left Atrial Appendage, Open Approach (ICD-10-PCS; 2021-01-10)
DX: I25.10 Atherosclerotic heart disease of native coronary artery without angina pectoris (principal); J96.00 Acute respiratory failure, unspecified whether with hypoxia or hypercapnia; I50.33 Acute on chronic diastolic (congestive) heart failure; I16.1 Hypertensive emergency; D64.9 Anemia, unspecified; E11.65 Type 2 diabetes mellitus with hyperglycemia; F17.210 Nicotine dependence, cigarettes, uncomplicated; I35.0 Nonrheumatic aortic (valve) stenosis; Z96.651 Presence of right artificial knee joint; I48.0 Paroxysmal atrial fibrillation; R26.9 Unspecified abnormalities of gait and mobility; I11.0 Hypertensive heart disease with heart failure; J44.9 Chronic obstructive pulmonary disease, unspecified; Z86.73 Personal history of transient ischemic attack (TIA), and cerebral infarction without residual deficits; Z95.1 Presence of aortocoronary bypass graft
CPT/HCPCS: 36415; 36600; 71045; 80048; 81003; 82375; 82805; 82962; 83036; 83735; 84100; 84132; 85025; 85347; 85520; 86850; 86900; 86920; 87070; 87075; 87077; 87186; 88305; 88311; 93005; 94640; 97110; 97116; 97163; 97166; 97530; A6261; C1725; C1729; C1751; C1758; J0282; J0360; J0690; J1265; J1644; J1815; J1885; J1940; J2250; J2270; J2370; J2405; J2704; J2710; J2720; J2765; J3010; J3475; J3480; J3490; J7040; J7050; J7060; L3908; P9047; Q9957

== ENCOUNTER 2021-01-14 18:05 | Inpatient (IN) | payer MEDICAID ==
[~2021-01-14] VITALS: Ht 182.9 cm; Wt 93.9 kg
[~2021-01-14 18:05] MED LIST changes: -ACETAMINOPHEN 500MG TABLET ONE; -BACITRACIN 15GM TUBE TOP ONE; -DOPAMINE 400MG/250ML PREMIX 250 ML IV ONE; -POLYMYXIN B SULFATE 500000 UNITS/VIAL ONE; -SKIN ADHESIVE 0.7 GM EA TOP ONE; -THROMBIN (BOVINE) 5000 UNITS/VIAL TOP ONE
[2021-01-14 18:48] VITALS: BP 151/76
[2021-01-14 19:00] VITALS: BP 144/77
[2021-01-14] MEDS ORDERED: DEXTROSE 50% WATER 50ML SYRINGE IV PRN ×2 (19:00)
[2021-01-14] MEDS ORDERED: ONDANSETRON HCL 4MG/2ML INJ IV PRN (19:00)
[2021-01-14] MEDS ORDERED: NALOXONE HCL 0.4 MG/ML 1ML VIAL IV PRN (19:00)
[2021-01-14] MEDS ORDERED: OXYCODONE HCL/ACETAMINOPHEN 5/325MG TABLET PO PRN (19:00)
[2021-01-14] MEDS ORDERED: KETOROLAC 15MG/ML VIAL IV PRN (19:00)
[2021-01-14 20:00] VITALS: BP 144/77
[2021-01-14] MEDS: METOPROLOL TARTRATE 50MG TABLET PO SCH (20:22)
[2021-01-14] MEDS: ATORVASTATIN CALCIUM 40MG TABLET PO SCH (20:22)
[2021-01-14] MEDS: AMIODARONE HCL 200 MG TABLET PO SCH (20:23)
[2021-01-14] MEDS: GUAIFENESIN 600MG ER TABLET PO SCH (20:23)
[2021-01-14] MEDS ORDERED: INSULIN LISPRO 100 UNITS/ML SUBCUT SCH (21:00)
[2021-01-14] MEDS ORDERED: BLOOD SUGAR DIAGNOSTIC STRIP TEST SCH (21:00)
[2021-01-14] MEDS: IPRATROPIUM/ALBUTEROL 0.5-3(2.5)MG/3ML NEB HHN SCH (21:31)
[2021-01-15] MEDS ORDERED: OXYCODONE HCL/ACETAMINOPHEN 5/325MG TABLET PO PRN (00:30)
[2021-01-15] MEDS: OXYCODONE HCL/ACETAMINOPHEN 5/325MG TABLET PO PRN ×5 (01:00→20:12)
[2021-01-15] MEDS: IPRATROPIUM/ALBUTEROL 0.5-3(2.5)MG/3ML NEB HHN SCH ×4 (01:54→20:50)
[2021-01-15] MEDS: GUAIFENESIN 200MG/10ML SUGAR FREE UDC PO PRN (05:48)
[2021-01-15 06:55] VITALS: BP 156/86
[2021-01-15 07:46] VITALS: BP 155/69
[2021-01-15 08:25] LABS: HEMATOCRIT. 35.1 % (42.0-52.0); HEMOGLOBIN. 11.7 g/dL (14.0-18.0); MEAN CORPUSCULAR VOLUME 84.2 fL (80.0-94.0); MEAN PLATELET VOLUME 9.8 fl (7.4-10.4); PLATELET 158 x1000/uL (130-400); RED BLOOD CELL COUNT 4.17 mill/uL (4.7-6.1); RED CELL DISTRIBUTION WIDTH 15.6 % (11.6-14.6)
[2021-01-15 08:52] LABS: CHLORIDE 107 mEq/L (98-107)
[2021-01-15] MEDS: ASPIRIN 81MG TABLET PO SCH (09:05)
[2021-01-15] MEDS: DOCUSATE SODIUM 100MG CAPSULE PO SCH ×2 (09:05→16:25)
[2021-01-15] MEDS: GUAIFENESIN 600MG ER TABLET PO SCH ×2 (09:06→20:03)
[2021-01-15] MEDS: AMIODARONE HCL 200 MG TABLET PO SCH ×2 (09:06→20:03)
[2021-01-15] MEDS: METOPROLOL TARTRATE 50MG TABLET PO SCH ×2 (09:07→22:02)
[2021-01-15] MEDS: POLYETHYLENE GLYCOL 3350 (17GM) 1 DOSE PACK PO SCH (09:09)
[2021-01-15] MEDS: BACITRACIN 15GM TUBE TOP SCH ×2 (09:25→16:25)
[2021-01-15 10:54] LABS: ATYPICAL LYMPHOCYTES 1
[2021-01-15 10:55] LABS: PLATELET ESTIMATE NORMAL
[2021-01-15 13:55] VITALS: BP 146/67
[2021-01-15] MEDS: MULTIVITAMINS,THER W-MINERALS TABLET PO SCH (16:25)
[2021-01-15 20:00] VITALS: BP 126/81
[2021-01-15] MEDS: ATORVASTATIN CALCIUM 40MG TABLET PO SCH (20:03)
[2021-01-15] MEDS: TEMAZEPAM 15MG CAPSULE PO SCH (22:52)
[2021-01-16] MEDS: IPRATROPIUM/ALBUTEROL 0.5-3(2.5)MG/3ML NEB HHN SCH ×5 (01:22→21:49)
[2021-01-16] MEDS: OXYCODONE HCL/ACETAMINOPHEN 5/325MG TABLET PO PRN ×6 (02:54→21:24)
[2021-01-16 07:46] VITALS: BP 133/76
[2021-01-16] MEDS ORDERED: BISACODYL 5MG TABLET PO PRN (08:00)
[2021-01-16] MEDS: GUAIFENESIN 600MG ER TABLET PO SCH ×2 (08:51→21:10)
[2021-01-16] MEDS: ASPIRIN 81MG TABLET PO SCH (08:51)
[2021-01-16] MEDS: POLYETHYLENE GLYCOL 3350 (17GM) 1 DOSE PACK PO SCH (08:51)
[2021-01-16] MEDS: ENOXAPARIN 40MG/0.4ML SYR SUBCUT SCH (08:51)
[2021-01-16] MEDS: METOPROLOL TARTRATE 50MG TABLET PO SCH ×2 (08:52→21:11)
[2021-01-16] MEDS: AMIODARONE HCL 200 MG TABLET PO SCH ×2 (08:52→21:12)
[2021-01-16] MEDS: DOCUSATE SODIUM 100MG CAPSULE PO SCH ×2 (08:52→16:05)
[2021-01-16] MEDS: MULTIVITAMINS,THER W-MINERALS TABLET PO SCH ×2 (08:52→16:08)
[2021-01-16] MEDS: BACITRACIN 15GM TUBE TOP SCH ×2 (08:52→16:07)
[2021-01-16 08:54] LABS: BASOPHILS % 0.4 % (0.0-2.0); HEMATOCRIT. 35.4 % (42.0-52.0); HEMOGLOBIN. 11.8 g/dL (14.0-18.0); LYMPHOCYTES % 24.7 % (20.0-50.0); MEAN CORPUSCULAR VOLUME 84.2 fL (80.0-94.0); MEAN PLATELET VOLUME 9.5 fl (7.4-10.4); MONOCYTES % 10.6 % (2.0-8.0); NEUTROPHILS % 63.3 % (40.0-76.0); PLATELET 178 x1000/uL (130-400); RED BLOOD CELL COUNT 4.21 mill/uL (4.7-6.1); RED CELL DISTRIBUTION WIDTH 15.5 % (11.6-14.6)
[2021-01-16 08:58] LABS: CHLORIDE 107 mEq/L (98-107)
[2021-01-16 09:01] LABS: TOTAL IRON BINDING CAPACITY 229 ug/dL (250-450)
[2021-01-16 09:23] LABS: FOLIC ACID (FOLATE) SERUM 9.9 ng/mL (>5.38)
[2021-01-16] MEDS: FERROUS SULFATE 325MG TABLET PO SCH ×2 (13:30→16:14)
[2021-01-16] MEDS: LACTULOSE 20G/30ML UDC PO SCH ×2 (16:05→21:10)
[2021-01-16] MEDS ORDERED: NA PHOS,M-B/NA PHOS,DI-BA ENEMA 118ML PR NR (17:30)
[2021-01-16 20:00] VITALS: BP 154/70
[2021-01-16] MEDS: TEMAZEPAM 15MG CAPSULE PO SCH (21:11)
[2021-01-16] MEDS: ATORVASTATIN CALCIUM 40MG TABLET PO SCH (21:11)
[2021-01-17] MEDS: IPRATROPIUM/ALBUTEROL 0.5-3(2.5)MG/3ML NEB HHN SCH ×6 (01:07→21:51)
[2021-01-17] MEDS: LACTULOSE 20G/30ML UDC PO SCH ×3 (04:00→08:00)
[2021-01-17] MEDS: OXYCODONE HCL/ACETAMINOPHEN 5/325MG TABLET PO PRN ×2 (06:16→20:47)
[2021-01-17 08:09] VITALS: BP 128/67
[2021-01-17] MEDS: ASPIRIN 81MG TABLET PO SCH (08:37)
[2021-01-17] MEDS: AMIODARONE HCL 200 MG TABLET PO SCH ×2 (08:37→20:51)
[2021-01-17] MEDS: DOCUSATE SODIUM 100MG CAPSULE PO SCH ×3 (08:37→17:00)
[2021-01-17] MEDS: FERROUS SULFATE 325MG TABLET PO SCH ×3 (08:37→16:51)
[2021-01-17] MEDS: METOPROLOL TARTRATE 50MG TABLET PO SCH ×2 (08:38→20:46)
[2021-01-17] MEDS: MULTIVITAMINS,THER W-MINERALS TABLET PO SCH ×2 (08:38→16:51)
[2021-01-17] MEDS: GUAIFENESIN 600MG ER TABLET PO SCH ×2 (08:38→20:46)
[2021-01-17] MEDS: ENOXAPARIN 40MG/0.4ML SYR SUBCUT SCH (08:39)
[2021-01-17] MEDS: POLYETHYLENE GLYCOL 3350 (17GM) 1 DOSE PACK PO SCH (08:45)
[2021-01-17] MEDS ORDERED: POLYETHYLENE GLYCOL 3350 (17GM) 1 DOSE PACK PO SCH (09:00)
[2021-01-17] MEDS: BACITRACIN 15GM TUBE TOP SCH ×2 (10:54→17:00)
[2021-01-17 20:00] VITALS: BP 137/60
[2021-01-17] MEDS: ATORVASTATIN CALCIUM 40MG TABLET PO SCH (20:46)
[2021-01-17] MEDS: TEMAZEPAM 15MG CAPSULE PO SCH (22:05)
[2021-01-18] MEDS: IPRATROPIUM/ALBUTEROL 0.5-3(2.5)MG/3ML NEB HHN SCH ×6 (01:55→20:42)
[2021-01-18] MEDS: OXYCODONE HCL/ACETAMINOPHEN 5/325MG TABLET PO PRN ×3 (05:45→20:46)
[2021-01-18 08:24] VITALS: BP 154/72
[2021-01-18] MEDS: FERROUS SULFATE 325MG TABLET PO SCH ×3 (08:43→17:50)
[2021-01-18] MEDS: ASPIRIN 81MG TABLET PO SCH (08:43)
[2021-01-18] MEDS: MULTIVITAMINS,THER W-MINERALS TABLET PO SCH ×2 (08:43→17:50)
[2021-01-18] MEDS: GUAIFENESIN 600MG ER TABLET PO SCH ×2 (08:43→20:47)
[2021-01-18] MEDS: DOCUSATE SODIUM 100MG CAPSULE PO SCH ×2 (08:43→17:50)
[2021-01-18] MEDS: ENOXAPARIN 40MG/0.4ML SYR SUBCUT SCH (08:45)
[2021-01-18] MEDS: POLYETHYLENE GLYCOL 3350 (17GM) 1 DOSE PACK PO SCH (08:45)
[2021-01-18] MEDS: BACITRACIN 15GM TUBE TOP SCH ×2 (09:24→17:58)
[2021-01-18] MEDS: AMIODARONE HCL 200 MG TABLET PO SCH ×2 (10:47→20:47)
[2021-01-18] MEDS: METOPROLOL TARTRATE 50MG TABLET PO SCH ×2 (10:48→20:47)
[2021-01-18 20:00] VITALS: BP 166/76
[2021-01-18] MEDS: ATORVASTATIN CALCIUM 40MG TABLET PO SCH (20:46)
[2021-01-18] MEDS: TEMAZEPAM 15MG CAPSULE PO SCH (20:50)
[2021-01-19] MEDS: IPRATROPIUM/ALBUTEROL 0.5-3(2.5)MG/3ML NEB HHN SCH ×5 (00:10→20:00)
[2021-01-19 04:00] VITALS: BP 144/76
[2021-01-19] MEDS: OXYCODONE HCL/ACETAMINOPHEN 5/325MG TABLET PO PRN ×2 (07:13→11:40)
[2021-01-19 07:51] VITALS: BP 136/87
[2021-01-19] MEDS: POLYETHYLENE GLYCOL 3350 (17GM) 1 DOSE PACK PO SCH (08:23)
[2021-01-19] MEDS: ENOXAPARIN 40MG/0.4ML SYR SUBCUT SCH (08:23)
[2021-01-19] MEDS: METOPROLOL TARTRATE 50MG TABLET PO SCH ×2 (08:24→21:38)
[2021-01-19] MEDS: FERROUS SULFATE 325MG TABLET PO SCH ×3 (08:24→16:33)
[2021-01-19] MEDS: AMIODARONE HCL 200 MG TABLET PO SCH ×2 (08:24→21:37)
[2021-01-19] MEDS: DOCUSATE SODIUM 100MG CAPSULE PO SCH ×2 (08:24→16:33)
[2021-01-19] MEDS: MULTIVITAMINS,THER W-MINERALS TABLET PO SCH ×2 (08:24→16:33)
[2021-01-19] MEDS: GUAIFENESIN 600MG ER TABLET PO SCH ×2 (08:24→21:37)
[2021-01-19] MEDS: ASPIRIN 81MG TABLET PO SCH (08:25)
[2021-01-19] MEDS: BACITRACIN 15GM TUBE TOP SCH ×2 (08:32→16:38)
[2021-01-19] MEDS: GUAIFENESIN 200MG/10ML SUGAR FREE UDC PO PRN ×2 (08:32→13:26)
[2021-01-19] MEDS ORDERED: METHYL SALICYLATE/MENTHOL CREAM 85GM TOP PRN (13:00)
[2021-01-19] MEDS: IBUPROFEN 600MG TABLET PO PRN (13:26)
[2021-01-19 19:06] LABS: 25-HYDROXY VITAMIN D3 21 ng/mL (.)
[2021-01-19 20:00] VITALS: BP 159/81
[2021-01-19] MEDS: TEMAZEPAM 15MG CAPSULE PO SCH (21:37)
[2021-01-19] MEDS: ATORVASTATIN CALCIUM 40MG TABLET PO SCH (21:37)
[2021-01-20] MEDS: IPRATROPIUM/ALBUTEROL 0.5-3(2.5)MG/3ML NEB HHN SCH ×3 (04:00→13:25)
[2021-01-20] MEDS: IBUPROFEN 600MG TABLET PO PRN (06:20)
[2021-01-20 08:00] VITALS: BP 141/57
[2021-01-20] MEDS: POLYETHYLENE GLYCOL 3350 (17GM) 1 DOSE PACK PO SCH (10:25)
[2021-01-20] MEDS: GUAIFENESIN 200MG/10ML SUGAR FREE UDC PO PRN (10:25)
[2021-01-20] MEDS: ENOXAPARIN 40MG/0.4ML SYR SUBCUT SCH (10:25)
[2021-01-20] MEDS: DOCUSATE SODIUM 100MG CAPSULE PO SCH ×2 (10:26→16:40)
[2021-01-20] MEDS: AMIODARONE HCL 200 MG TABLET PO SCH ×2 (10:26→20:37)
[2021-01-20] MEDS: METOPROLOL TARTRATE 50MG TABLET PO SCH ×2 (10:26→20:37)
[2021-01-20] MEDS: BACITRACIN 15GM TUBE TOP SCH ×2 (10:26→16:40)
[2021-01-20] MEDS: ASPIRIN 81MG TABLET PO SCH (10:26)
[2021-01-20] MEDS: GUAIFENESIN 600MG ER TABLET PO SCH ×2 (10:27→20:37)
[2021-01-20] MEDS: MULTIVITAMINS,THER W-MINERALS TABLET PO SCH ×2 (10:27→16:39)
[2021-01-20] MEDS: FERROUS SULFATE 325MG TABLET PO SCH ×3 (10:27→16:39)
[2021-01-20] MEDS: HYDROCODONE/ACETAMINOPHEN 10/325MG TABLET PO PRN ×2 (11:19→18:40)
[2021-01-20] MEDS ORDERED: IPRATROPIUM/ALBUTEROL 0.5-3(2.5)MG/3ML NEB HHN PRN (14:45)
[2021-01-20] MEDS ORDERED: ERGOCALCIFEROL 50000UNITS CAPSULE PO SCH (15:00)
[2021-01-20 20:00] VITALS: BP 147/78
[2021-01-20] MEDS: TEMAZEPAM 15MG CAPSULE PO SCH (20:36)
[2021-01-20] MEDS: ATORVASTATIN CALCIUM 40MG TABLET PO SCH (20:37)
[2021-01-21] MEDS: IBUPROFEN 600MG TABLET PO PRN (06:01)
[2021-01-21 08:00] VITALS: BP 155/69
[2021-01-21] MEDS: POLYETHYLENE GLYCOL 3350 (17GM) 1 DOSE PACK PO SCH ×2 (09:00→09:30)
[2021-01-21] MEDS: DOCUSATE SODIUM 100MG CAPSULE PO SCH ×3 (09:00→16:09)
[2021-01-21] MEDS: ASPIRIN 81MG TABLET PO SCH (09:30)
[2021-01-21] MEDS: AMIODARONE HCL 200 MG TABLET PO SCH ×2 (09:30→20:01)
[2021-01-21] MEDS: MULTIVITAMINS,THER W-MINERALS TABLET PO SCH ×2 (09:30→16:15)
[2021-01-21] MEDS: METOPROLOL TARTRATE 50MG TABLET PO SCH ×2 (09:31→20:01)
[2021-01-21] MEDS: GUAIFENESIN 600MG ER TABLET PO SCH ×2 (09:31→20:00)
[2021-01-21] MEDS: FERROUS SULFATE 325MG TABLET PO SCH ×3 (09:31→16:15)
[2021-01-21] MEDS: ENOXAPARIN 40MG/0.4ML SYR SUBCUT SCH (09:32)
[2021-01-21] MEDS: BACITRACIN 15GM TUBE TOP SCH ×2 (09:32→16:15)
[2021-01-21] MEDS: HYDROCODONE/ACETAMINOPHEN 10/325MG TABLET PO PRN ×2 (13:02→19:57)
[2021-01-21 20:00] VITALS: BP 163/90
[2021-01-21] MEDS: ATORVASTATIN CALCIUM 40MG TABLET PO SCH (20:00)
[2021-01-21 21:50] VITALS: BP 112/61
[2021-01-21] MEDS: TEMAZEPAM 15MG CAPSULE PO SCH (21:53)
[2021-01-22 08:04] VITALS: BP 154/83
[2021-01-22] MEDS: FERROUS SULFATE 325MG TABLET PO SCH ×3 (08:50→16:56)
[2021-01-22] MEDS: HYDROCODONE/ACETAMINOPHEN 10/325MG TABLET PO PRN ×2 (08:50→19:33)
[2021-01-22] MEDS: GUAIFENESIN 600MG ER TABLET PO SCH ×2 (08:50→20:38)
[2021-01-22] MEDS: METOPROLOL TARTRATE 50MG TABLET PO SCH ×2 (08:50→20:38)
[2021-01-22] MEDS: MULTIVITAMINS,THER W-MINERALS TABLET PO SCH ×2 (08:50→16:56)
[2021-01-22] MEDS: POLYETHYLENE GLYCOL 3350 (17GM) 1 DOSE PACK PO SCH (08:52)
[2021-01-22] MEDS: ASPIRIN 81MG TABLET PO SCH (08:52)
[2021-01-22] MEDS: ENOXAPARIN 40MG/0.4ML SYR SUBCUT SCH (08:54)
[2021-01-22] MEDS: DOCUSATE SODIUM 100MG CAPSULE PO SCH ×2 (08:55→16:56)
[2021-01-22] MEDS: BACITRACIN 15GM TUBE TOP SCH ×2 (09:05→16:56)
[2021-01-22] MEDS: AMIODARONE HCL 200 MG TABLET PO SCH ×2 (09:05→20:43)
[2021-01-22 19:30] VITALS: BP 125/74
[2021-01-22] MEDS: TEMAZEPAM 15MG CAPSULE PO SCH (20:38)
[2021-01-22] MEDS: ATORVASTATIN CALCIUM 40MG TABLET PO SCH (20:38)
[2021-01-23] MEDS: HYDROCODONE/ACETAMINOPHEN 10/325MG TABLET PO PRN ×3 (04:27→16:56)
[2021-01-23 07:48] VITALS: BP 145/77
[2021-01-23] MEDS: POLYETHYLENE GLYCOL 3350 (17GM) 1 DOSE PACK PO SCH (09:00)
[2021-01-23] MEDS: DOCUSATE SODIUM 100MG CAPSULE PO SCH ×2 (09:00→16:25)
[2021-01-23] MEDS: FERROUS SULFATE 325MG TABLET PO SCH ×3 (10:05→16:25)
[2021-01-23] MEDS: GUAIFENESIN 600MG ER TABLET PO SCH ×2 (10:06→20:50)
[2021-01-23] MEDS: ENOXAPARIN 40MG/0.4ML SYR SUBCUT SCH (10:06)
[2021-01-23] MEDS: METOPROLOL TARTRATE 50MG TABLET PO SCH ×2 (10:06→20:50)
[2021-01-23] MEDS: ASPIRIN 81MG TABLET PO SCH (10:06)
[2021-01-23] MEDS: MULTIVITAMINS,THER W-MINERALS TABLET PO SCH ×2 (10:06→16:25)
[2021-01-23] MEDS: AMIODARONE HCL 200 MG TABLET PO SCH ×2 (10:13→20:50)
[2021-01-23] MEDS: BACITRACIN 15GM TUBE TOP SCH ×2 (10:13→16:25)
[2021-01-23 20:00] VITALS: BP 109/88
[2021-01-23] MEDS: TEMAZEPAM 15MG CAPSULE PO SCH (20:50)
[2021-01-23] MEDS: ATORVASTATIN CALCIUM 40MG TABLET PO SCH (20:50)
[2021-01-24] MEDS: HYDROCODONE/ACETAMINOPHEN 10/325MG TABLET PO PRN ×3 (03:21→16:10)
[2021-01-24 08:17] VITALS: BP 132/66
[2021-01-24] MEDS: METOPROLOL TARTRATE 50MG TABLET PO SCH (09:03)
[2021-01-24] MEDS: ASPIRIN 81MG TABLET PO SCH (09:04)
[2021-01-24] MEDS: FERROUS SULFATE 325MG TABLET PO SCH ×3 (09:04→17:00)
[2021-01-24] MEDS: DOCUSATE SODIUM 100MG CAPSULE PO SCH ×2 (09:04→16:15)
[2021-01-24] MEDS: GUAIFENESIN 600MG ER TABLET PO SCH ×2 (09:04→21:00)
[2021-01-24] MEDS: MULTIVITAMINS,THER W-MINERALS TABLET PO SCH ×2 (09:05→15:47)
[2021-01-24] MEDS: ENOXAPARIN 40MG/0.4ML SYR SUBCUT SCH (09:06)
[2021-01-24] MEDS: BACITRACIN 15GM TUBE TOP SCH ×2 (09:07→15:50)
[2021-01-24] MEDS: POLYETHYLENE GLYCOL 3350 (17GM) 1 DOSE PACK PO SCH (09:07)
[2021-01-24] MEDS: AMIODARONE HCL 200 MG TABLET PO SCH (09:16)
[2021-01-24 20:00] VITALS: BP 147/72
[2021-01-24] MEDS: ATORVASTATIN CALCIUM 40MG TABLET PO SCH (21:13)
[2021-01-24] MEDS: TEMAZEPAM 15MG CAPSULE PO SCH (21:13)
[2021-01-24] MEDS: METOPROLOL TARTRATE 25MG TABLET PO SCH (21:19)
[2021-01-24] MEDS ORDERED: HYDRALAZINE HCL 25MG TABLET PO PRN (22:00)
[2021-01-25] MEDS: HYDROCODONE/ACETAMINOPHEN 10/325MG TABLET PO PRN (06:32)
[2021-01-25 07:54] VITALS: BP 160/70
[2021-01-25] MEDS: MULTIVITAMINS,THER W-MINERALS TABLET PO SCH (08:52)
[2021-01-25] MEDS: METOPROLOL TARTRATE 25MG TABLET PO SCH (08:52)
[2021-01-25] MEDS: ASPIRIN 81MG TABLET PO SCH (08:52)
[2021-01-25] MEDS: GUAIFENESIN 600MG ER TABLET PO SCH (08:52)
[2021-01-25] MEDS: FERROUS SULFATE 325MG TABLET PO SCH (08:52)
[2021-01-25] MEDS: ENOXAPARIN 40MG/0.4ML SYR SUBCUT SCH (08:53)
[2021-01-25] MEDS: BACITRACIN 15GM TUBE TOP SCH (08:53)
[2021-01-25] MEDS: POLYETHYLENE GLYCOL 3350 (17GM) 1 DOSE PACK PO SCH (08:59)
[2021-01-25] MEDS: DOCUSATE SODIUM 100MG CAPSULE PO SCH (08:59)
[2021-01-25 10:10] VITALS: BP 147/74
[2021-01-25] MEDS ORDERED: LOSARTAN POTASSIUM 25 MG TABLET PO SCH (10:30)
== END 2021-01-25 10:12 | disposition home health service (06) | DRG 861 ==
PROVIDERS: ADMIT Physical Medicine & Rehabilitation Spinal Cord Injury Medicine; ATTEND Internal Medicine
DX: R53.81 Other malaise (principal); J96.00 Acute respiratory failure, unspecified whether with hypoxia or hypercapnia; I11.0 Hypertensive heart disease with heart failure; I50.32 Chronic diastolic (congestive) heart failure; Z96.651 Presence of right artificial knee joint; I25.10 Atherosclerotic heart disease of native coronary artery without angina pectoris; D64.9 Anemia, unspecified; I35.0 Nonrheumatic aortic (valve) stenosis; J44.9 Chronic obstructive pulmonary disease, unspecified; E55.9 Vitamin D deficiency, unspecified; F17.210 Nicotine dependence, cigarettes, uncomplicated; I16.1 Hypertensive emergency; I48.0 Paroxysmal atrial fibrillation; R13.10 Dysphagia, unspecified; R26.89 Other abnormalities of gait and mobility; R73.9 Hyperglycemia, unspecified; R74.01 Elevation of levels of liver transaminase levels; Z86.73 Personal history of transient ischemic attack (TIA), and cerebral infarction without residual deficits; Z95.1 Presence of aortocoronary bypass graft; Z95.2 Presence of prosthetic heart valve
CPT/HCPCS: 36415; 80048; 80053; 82306; 82607; 82728; 82746; 82962; 83540; 83550; 84134; 84443; 85025; 92610; 93005; 93970; 94640; 97110; 97116; 97162; 97166; 97530; 97535; J1650